=== PATIENT | male | born 1975 | race African-American/Black ===

== ENCOUNTER 2016-12-25 17:08 | Observation (INO) | payer OTHER ==
[~2016-12-25] VITALS: Ht 177.8 cm; Wt 105.1 kg
[~2016-12-25 17:08] MED LIST: PERCOCET 5/31 TABLET PO; PRILOSEC40 MG PO
[2016-12-25] MEDS ORDERED: OMEPRAZOLE20 MG PO (23:35)
[2016-12-25] MEDS ORDERED: METFORMIN HCL500 MG PO (23:35)
[2016-12-25] MEDS ORDERED: CHOLESTEROL MED PO (23:36)
[2016-12-25] MEDS ORDERED: KIDNEY MED PO (23:36)
[2016-12-26 01:27] VITALS: BP 132/78
[2016-12-26 04:46] VITALS: BP 119/84
[2016-12-26 07:04] LABS: POINT-OF-CARE METER ID UU14188577
[2016-12-26 08:20] VITALS: BP 128/90
[2016-12-26 11:54] LABS: POINT-OF-CARE METER ID UU14208753
[2016-12-26] MEDS ORDERED: TORADOL10 MG PO (14:04)
[2016-12-26] MEDS ORDERED: ULTRAM50 MG PO (14:04)
[2016-12-26 16:37] LABS: POINT-OF-CARE METER ID UU14208753
[2016-12-26 16:53] VITALS: BP 132/89
[2016-12-26 19:57] VITALS: BP 153/88
[2016-12-26 21:40] LABS: POINT-OF-CARE METER ID UU14208753
[2016-12-26 23:43] VITALS: BP 136/97
[2016-12-27 03:50] VITALS: BP 136/89
[2016-12-27 06:13] LABS: HEMATOCRIT 41.4 % (38.0-50.0); MCHC 32.9 G/DL (30.0-36.0); MCV 85.2 FL (86-99); MEAN PLAT.VOLUME 10.5 uM^3 (9.0-12.4); PLATELET COUNT 217 K/uL (156-360); RBC DIS.WIDTH-CV 12.7 % (11.8-14.6); RBC DIS.WIDTH-SD 39.4 % (39-53); RED BLOOD COUNT 4.86 M/uL (4.00-5.50); WHITE BLOOD COUNT 6.5 K/uL (4.1-10.2)
[2016-12-27 06:41] LABS: ANION GAP 8 MEQ/L (2-14); CHLORIDE 105 MEQ/L (99-109); GFR ESTIMATE (CALCULATED) > 59 mL/min/; GLUCOSE 102 mg/dL (70-99); POTASSIUM 4.4 MEQ/L (3.7-5.4); SAMPLE HEMOLYSIS CHECK 0; SAMPLE ICTERIC CHECK 0; SAMPLE LIPEMIA CHECK 0; SODIUM 143 MEQ/L (136-147); UREA NITROGEN (BUN) 16 mg/dL (9-23)
[2016-12-27 08:43] VITALS: BP 137/86
== END 2016-12-27 12:45 | disposition home or self-care (01) ==
LOC: EME 17:08 → 3EAST 23:47 → EDOF 23:47 → ENRESERV 23:48 → 3EAST 12-26 00:55
PROVIDERS: Hospitalist
PROC: 3E0T3BZ Introduction of Anesthetic Agent into Peripheral Nerves and Plexi, Percutaneous Approach (ICD-10-PCS; principal; 2016-12-25)
DX: S06.0X0A Concussion without loss of consciousness, initial encounter (principal); R51 Headache; R42 Dizziness and giddiness; R26.9 Unspecified abnormalities of gait and mobility; R20.0 Anesthesia of skin; S00.01XA Abrasion of scalp, initial encounter; S00.03XA Contusion of scalp, initial encounter; V98.8XXA Other specified transport accidents, initial encounter; E11.9 Type 2 diabetes mellitus without complications; E78.5 Hyperlipidemia, unspecified; K21.9 Gastro-esophageal reflux disease without esophagitis; R25.2 Cramp and spasm; Z79.84 Long term (current) use of oral hypoglycemic drugs
CPT/HCPCS: 70450; 72125; 80048; 82948; 85027; G0378; J1650; J1815; J1885; J2270; J3360; J7030

== ENCOUNTER 2017-10-06 08:03 | Emergency (ER) | payer OTHER ==
[~2017-10-06] VITALS: Ht 180.3 cm; Wt 111.7 kg
[~2017-10-06 08:03] MED LIST changes: +CHOLESTEROL MED PO; +KIDNEY MED PO; +METFORMIN HCL500 MG PO; +OMEPRAZOLE20 MG PO; +TORADOL10 MG PO; +ULTRAM50 MG PO
[2017-10-06 08:14] VITALS: BP 125/97
== END 2017-10-06 10:08 | disposition home or self-care (01) ==
LOC: EME 08:03
DX: G89.29 Other chronic pain (principal); M25.561 Pain in right knee; S83.92XA Sprain of unspecified site of left knee, initial encounter; Q74.1 Congenital malformation of knee; X58.XXXA Exposure to other specified factors, initial encounter; E11.9 Type 2 diabetes mellitus without complications; Z79.84 Long term (current) use of oral hypoglycemic drugs; Z72.0 Tobacco use
CPT/HCPCS: 73564; 99281; 99284

== ENCOUNTER 2017-10-16 14:04 | Observation (INO) | payer OTHER ==
[~2017-10-16] VITALS: Ht 177.8 cm; Wt 110.0 kg
[2017-10-16 15:11] LABS: HEMATOCRIT 40.8 % (38.0-50.0); HEMOGLOBIN 14.4 G/DL (12.5-16.6); MCH 29.4 PG (29.0-34.0); MCHC 35.3 G/DL (30.0-36.0); MCV 83.4 FL (86-99); PLATELET COUNT 205 K/uL (156-360); RBC DIS.WIDTH-CV 11.7 % (11.8-14.6); RBC DIS.WIDTH-SD 35.6 % (39-53); RED BLOOD COUNT 4.89 M/uL (4.00-5.50); WHITE BLOOD COUNT 6.2 K/uL (4.1-10.2)
[2017-10-16 15:19] LABS: CHLORIDE 99 mEq/L (99-109); POTASSIUM 4.4 mEq/L (3.7-5.4); SODIUM 136 mEq/L (136-147)
[2017-10-16 15:21] LABS: GLUCOSE 200 mg/dL (70-99)
[2017-10-16 15:25] LABS: GFR ESTIMATE (CALCULATED) > 59 mL/min/ (58.99-99999)
[2017-10-16 15:26] LABS: UREA NITROGEN (BUN) 11 mg/dL (9-23)
[2017-10-16 15:33] LABS: TROP-I INTERPRETATION NEGATIVE; TROPONIN-I < 0.01 ng/mL (0.0-0.30)
[2017-10-16] MEDS ORDERED: ATORVASTATIN CA80 MG PO (16:33)
[2017-10-16 18:13] LABS: HDL CHOLESTEROL 36 MG/DL (Desirable>=40); LDL CHOLESTEROL 52 mg/dL (Desirable<100); NON-HDL CHOLESTEROL 89 mg/dL (Desirable<160); TOTAL CHOLESTEROL 125 mg/dL (Desirable<200); TRIGLYCERIDES 185 MG/DL (Normal: <150)
[2017-10-16 20:35] VITALS: BP 127/81
[2017-10-17 00:25] VITALS: BP 123/82
[2017-10-17 03:47] VITALS: BP 126/85
[2017-10-17 08:14] VITALS: BP 116/75
[2017-10-17 11:28] VITALS: BP 119/73
[2017-10-17] MEDS ORDERED: ATORVASTATIN CA80 MG PO (15:29)
[2017-10-17] MEDS ORDERED: METFORMIN HCL500 MG PO (15:29)
== END 2017-10-17 16:48 | disposition home or self-care (01) ==
LOC: EME 14:04 → EDOF 16:56 → ENRESERV 16:58 → 4SOUTH 20:24
PROVIDERS: Family Medicine; Nurse Practitioner Family
DX: G43.909 Migraine, unspecified, not intractable, without status migrainosus (principal); R20.0 Anesthesia of skin; R42 Dizziness and giddiness; E11.9 Type 2 diabetes mellitus without complications; E78.5 Hyperlipidemia, unspecified; K21.9 Gastro-esophageal reflux disease without esophagitis; Z79.84 Long term (current) use of oral hypoglycemic drugs; F17.200 Nicotine dependence, unspecified, uncomplicated
CPT/HCPCS: 70450; 70551; 71046; 80048; 80061; 82948; 83036; 84484; 85027; 93005; 99281; 99285; G0378; G8978 GP CJ; G8979 GP CI; J0780; J1200; J1650; J1885; J7120

== ENCOUNTER 2017-12-18 19:39 | Emergency (ER) | payer OTHER ==
[~2017-12-18] VITALS: Ht 175.3 cm; Wt 106.0 kg
[~2017-12-18 19:39] MED LIST changes: +ATORVASTATIN CA80 MG PO
[2017-12-18 20:01] LABS: HEMATOCRIT 42.2 % (38.0-50.0); MCH 28.9 PG (29.0-34.0); MCHC 35.5 G/DL (30.0-36.0); MCV 81.3 FL (86-99); PLATELET COUNT 244 K/uL (156-360); RBC DIS.WIDTH-CV 11.8 % (11.8-14.6); RBC DIS.WIDTH-SD 34.2 % (39-53); RED BLOOD COUNT 5.19 M/uL (4.00-5.50); WHITE BLOOD COUNT 6.6 K/uL (4.1-10.2)
[2017-12-18 20:03] LABS: CARBON DIOXIDE (BICARBONATE) 27.1 MEQ/L (20-31)
[2017-12-18 20:46] LABS: ALBUMIN 4.6 G/DL (3.2-4.8); ALKALINE PHOSPHATASE 69 IU/L (3-129); ALT (GPT) 14 IU/L (3-49); AST (GOT) 16 IU/L (2-34); CHLORIDE 97 MEQ/L (99-109); CREATININE 1.2 MG/DL (0.6-1.3); GFR ESTIMATE (CALCULATED) > 59 mL/min/ (58.99-99999); POTASSIUM 4.1 MEQ/L (3.7-5.4); SODIUM 130 MEQ/L (136-147); TOTAL BILIRUBIN 0.7 MG/DL (0.0-1.0); TOTAL PROTEIN 7.9 G/DL (6.4-8.3); UREA NITROGEN (BUN) 12 mg/dL (9-23)
[2017-12-18 20:51] LABS: GLUCOSE 510 mg/dL (70-99)
[2017-12-18 21:14] LABS: APPEARANCE CLEAR ((CLEAR)); BILIRUBIN NEGATIVE; BLOOD NEGATIVE; COLOR STRAW ((YELLOW)); GLUCOSE (STRIP) >=500; KETONES 5; LEUKOCYTES NEGATIVE; NITRITE NEGATIVE; PROTEIN (STRIP) NEGATIVE; SPECIFIC GRAVITY 1.027 (1.000-1.030); UCUL ADDED? NO; UROBILINOGEN 0.2 MG/DL (0.2-1.0)
[2017-12-18 23:22] VITALS: BP 130/86
== END 2017-12-18 23:24 | disposition home or self-care (01) ==
LOC: EME 19:39
PROVIDERS: Physician Assistant
DX: E11.65 Type 2 diabetes mellitus with hyperglycemia (principal); K21.9 Gastro-esophageal reflux disease without esophagitis; Z79.84 Long term (current) use of oral hypoglycemic drugs; Z87.891 Personal history of nicotine dependence
CPT/HCPCS: 80053; 81003; 82010; 82803; 82948; 85027; 99281; 99285; J7030